=== PATIENT | male | born 1965 | race Two or more races ===

== ENCOUNTER 2017-05-19 16:37 | Emergency (ER) | payer OTHER ==
[~2017-05-19] VITALS: Ht 175.3 cm; Wt 67.6 kg
[2017-05-19] MEDS ORDERED: EFFEXOR XR75 MG (17:00)
[2017-05-19] MEDS ORDERED: WELLBUTRIN XL300 MG (17:01)
[2017-05-19] MEDS ORDERED: ATIVAN1 MG (17:01)
[2017-05-19] MEDS ORDERED: TANDEM PLUS CA1 EACH (17:02)
[2017-05-19] MEDS ORDERED: OMEGA-31000 MG (17:02)
[2017-05-19] MEDS ORDERED: RISPERDAL0.5 MG (17:02)
[2017-05-19] MEDS ORDERED: ZANTAC300 MG (17:03)
[2017-05-19] MEDS ORDERED: VITAMIN D310000 UNIT (17:03)
[2017-05-19] MEDS ORDERED: FENOFIBRATE48 MG (17:04)
[2017-05-19] MEDS ORDERED: DALMANE30 MG (17:04)
[2017-05-19] MEDS ORDERED: STOOL SOFTENER240 MG (17:04)
== END 2017-05-19 18:53 | disposition home or self-care (01) ==
LOC: ER 16:37
DX: N50.89 Other specified disorders of the male genital organs (principal); S30.21 Contusion of penis; X58.XXXS Exposure to other specified factors, sequela